=== PATIENT | female | born 1985 | race Caucasian/White ===

== ENCOUNTER 2017-11-11 09:50 | Emergency (ER) | payer OTHER ==
[~2017-11-11] VITALS: Ht 162.6 cm; Wt 99.3 kg
[2017-11-11 09:54] VITALS: BP_SYST 115
--- NOTE | 2017-11-11 10:01 | NUR ---
Patient to ER bed 7 to gown for evaluation. Side rails up. Report received from ROCÍO Griffiths.
--- NOTE | 2017-11-11 10:02 | NUR ---
Pt was brought in by S, complains of "hearing a pop on left rib after coughing 30 minutes ago." Per patient she is 26 weeks , and has had a cough for about 5 weeks. Pt states she finished her course of Zpak. Pt reports after she coughed, she heard/felt a pop on the left side of her ribs, 8/10 pain with movement, and a 2/10 if she is at rest. Pt denies N/V, diarrhea, or fever. No other injuries/complaints per patient or noted.
--- NOTE | 2017-11-11 10:32 | NUR ---
Ariadne schilling in ED - 11/11/17 at 1036 by SDDOURRJ LAMBERT Guillaume at bedside examining patient.
--- NOTE | 2017-11-11 10:32 | NUR ---
ER Dr. Guillaume at bedside examining patient.
[2017-11-11 10:52] LABS: BILIRUBIN,URINE NEGATIVE (NEGATIVE); BLOOD, URINE NEGATIVE (NEGATIVE); CLARITY/URINE SL HAZY (CLEAR); COLOR,URINE YELLOW (YELLOW); GLUCOSE,URINE NEGATIVE (NEGATIVE); KETONES,URINE NEGATIVE (NEGATIVE); LEUKOCYTE ESTERASE ,URINE TRACE (NEGATIVE); NITRITE, URINE NEGATIVE (NEGATIVE); PROTEIN URINE NEGATIVE (NEGATIVE); UROBILINOGEN,URINE 0.2 (0.2-1.0)
[2017-11-11] MEDS: ACETAMINOPHEN 500 MG TABLET PO ONE (10:56)
[2017-11-11 11:13] LABS: BACTERIA,URINE MODERATE /HPF (None Seen); RBC,URINE 0-3 /HPF (0-3)
[2017-11-11 11:45] VITALS: BP_SYST 110
--- NOTE | 2017-11-11 11:45 | NUR ---
Patient given written and verbal discharge instructions and verbalizes understanding. ER MD discussed with patient the results and treatment provided. Patient in stable condition. ID arm band removed. Rx of Allamuchy given. Patient educated on pain management and to follow up with PMD. Pain Scale 2. Opportunity for questions provided and answered.
== END 2017-11-11 11:45 | disposition home or self-care (01) ==
LOC: SED 09:50
DX: O26.892 Other specified pregnancy related conditions, second trimester (principal); R10.9 Unspecified abdominal pain; R05 Cough; Z3A.26 26 weeks gestation of pregnancy
CPT/HCPCS: 81000-TC; 87086; 99284